=== PATIENT | female | born 1980 | race Caucasian/White ===

== ENCOUNTER 2021-09-03 02:10 | Observation (INO) ==
[2021-09-03 02:40] LABS: Basophils # 0.1 10*3/uL (0.0-0.2); Basophils % 0.8 % (0.0-0.8); Eosinophils # 0.2 10*3/uL (0.0-0.87); Eosinophils % 2.5 % (0.00-10.9); Hematocrit 38.3 VOL% (35.7-47.0); Immature Granulocytes % 0.5 %; Immature Granulocytes Absolute 0.04 #; Lymphocytes # 2.5 10*3/uL (1.4-4.0); Lymphocytes % 31.6 % (21.3-54.2); Mean Corpuscular HGB Conc 31.3 GM/DL (32-36); Mean Corpuscular Volume 79.1 FL (87-102); Mean Platelet Volume 10.3 FL (9.6-12.0); Monocytes % 7.4 % (1.7-12.7); Neutrophils % 57.2 % (38.7-73.9); Platelet Count 288 T/CUMM (130-400); Red Blood Count 4.84 MC/CUMM (3.8-5.5); Red Cell Distribution Width 15.3 % (9.3-17.3)
[2021-09-03] MEDS ORDERED: ASPIRIN 325 MG TABLET PO STA (02:44)
[2021-09-03] MEDS ORDERED: KETOROLAC 30 MG/1 ML VIAL IV STA (02:44)
[2021-09-03] MEDS ORDERED: ONDANSETRON 4 MG/2 ML VIAL IV STA (02:44)
[2021-09-03] MEDS ORDERED: ALUM/MAG/SIMETH/LIDO VISC 1:1 30 ML BOTTLE PO STA (02:44)
[2021-09-03] MEDS ORDERED: NITROGLYCERIN 2% OINT 1 INCH/GM PACK TOP STA (02:44)
[2021-09-03 03:17] LABS: Alanine Aminotransferase 19 U/L (13-56); Alkaline Phosphatase 84 U/L (45-117); Aspartate Amino Transferase 10 U/L (0-37); Bilirubin,Total < 0.39 MG/DL (0.20-1.00); Blood Urea Nitrogen 12 MG/DL (7-18); Calcium 9.2 MG/DL (8.5-10.1); Carbon Dioxide 26 MMOL/L (21-32); Estimated Glom Filtration Rate 74 ML/MIN; Glucose 107 MG/DL (74-106); Osmolality,Calculated 272.8 MOS/KG (273-304); Potassium 4.1 MMOL/L (3.5-5.1); Sodium 137 MMOL/L (136-145); Total Protein 8.1 G/DL (6.4-8.2)
[2021-09-03 03:25] LABS: Free T4 (Free Thyroxine) 0.99 NG/DL (0.76-1.46); Thyroid Stimulating Hormone 0.778 uIU/ml (0.358-3.74)
[2021-09-03] MEDS ORDERED: MAGNESIUM CHLORIDE 64 MG TABLET PO STA (03:37)
[2021-09-03] MEDS ORDERED: GLUCAGON 1 MG VIAL IM PRN (04:48)
[2021-09-03] MEDS ORDERED: DEXTROSE 50% 25 GM/50 ML SYRINGE IV PRN (04:55)
[2021-09-03] MEDS ORDERED: MAGNESIUM SULF RIDER 2 GM/50 ML PREMIX IV ONE (05:30)
[2021-09-03] MEDS ORDERED: ACETAMINOPHEN 325 MG TABLET PO ONE (05:39)
[2021-09-03] MEDS ORDERED: RIZATRIPTAN ODT 5 MG TABLET PO STA (05:39)
[2021-09-03 07:41] LABS: Risk Ratio 2.89; VLDL Cholesterol 12.8 MG/DL
[2021-09-03] MEDS: ONDANSETRON 4 MG/2 ML VIAL IV PRN ×2 (08:21→20:52)
[2021-09-03] MEDS: PANTOPRAZOLE 40 MG TABLET PO SCH (08:24)
[2021-09-03] MEDS: ENOXAPARIN 40 MG/0.4 ML SYRINGE SUBCUT SCH (08:28)
[2021-09-03] MEDS: QUEtiapine 25 MG TABLET PO SCH (09:49)
[2021-09-03] MEDS: GABAPENTIN 300 MG CAPSULE PO SCH ×3 (09:49→20:47)
[2021-09-03] MEDS: KETOROLAC 30 MG/1 ML VIAL IV PRN ×2 (10:09→20:48)
[2021-09-03] MEDS ORDERED: PROMETHAZINE INJ 25 MG in SODIUM CHLORIDE 0.9% 50 ML IV ONE (11:07)
[2021-09-03] MEDS ORDERED: ERGOCALCIFEROL 50,000 UNIT CAPSULE PO SCH (12:00)
[2021-09-03] MEDS: LIDOCAINE 5% PATCH TRANSDERM SCH (17:48)
[2021-09-04 08:00] VITALS: BP 128/69
[2021-09-04] MEDS: LIDOCAINE 5% PATCH TRANSDERM SCH (08:28)
[2021-09-04] MEDS: GABAPENTIN 300 MG CAPSULE PO SCH (08:29)
[2021-09-04] MEDS: QUEtiapine 25 MG TABLET PO SCH (08:29)
[2021-09-04] MEDS: PANTOPRAZOLE 40 MG TABLET PO SCH (08:30)
[2021-09-04] MEDS: ENOXAPARIN 40 MG/0.4 ML SYRINGE SUBCUT SCH (08:33)
[2021-09-04] MEDS ORDERED: ASPIRIN EC 325 MG TABLET PO SCH (09:00)
== END 2021-09-04 10:58 | disposition home or self-care (01) ==
LOC: N.EDINP 02:10 → N.ED 02:10 → N.EDINP 07:15 → N.TELEN 07:36
PROVIDERS: ADMIT Internal Medicine; ATTEND Internal Medicine